=== PATIENT | male | born 1990 | race Asian ===

== ENCOUNTER 2022-09-05 11:35 | Emergency (ER) | payer OTHER, SELFPAY ==
[2022-09-05] VITALS (11 sets, daily range): BP systolic 117–158; BP diastolic 54–95; PULSE 80–124; RESP 16–31; TEMP 36.5; O2SAT 97–100
--- NOTE | 2022-09-05 11:36 | ECG_ITS ---
Measurements Intervals [place] Rate: 112 P: 50 [place]: 131 QRS: 43 QRSD: 93 T: 57 QT: 344 QTc: 470 Interpretive Statements SINUS TACHYCARDIA ABNORMAL RHYTHM ECG NO PREVIOUS ECG AVAILABLE FOR COMPARISON Electronically Signed On 09-05-2022 13:58:50 CDT by Adam Ocampo M.D.
[2022-09-05 12:10] LABS: Basophils Percent Auto 0.3 % (0.2-1.2); Eosinophils Percent Auto 0.4 % (0-4.4); Hematocrit 43.8 % (42.0-52.0); Hemoglobin 14.4 g/dL (14.0-18.0); Immature Granulocyte Absolute 0.06 K/mm3 (0.00-0.031); Immature Granulocyte Percent A 0.6 % (0-0.5); Lymphocytes Absolute Auto 1.48 K/mm3 (0.9-3.2); Lymphocytes Percent Auto 15.7 % (18.3-44.2); Mean Corpuscular HGB Conc 32.9 g/dl (32-36); Mean Corpuscular Hemoglobin 28.8 pg (26-34); Mean Corpuscular Volume 87.6 fl (80-100); Mean Platelet Volume 11.8 fl (7.4-10.4); Monocytes Absolute Auto 0.5 K/mm3 (0.1-0.6); Monocytes Percent Auto 4.8 % (2.6-8.5); Neutrophils Absolute Auto 7.4 K/mm3 (1.3-6.7); Neutrophils Percent Auto 78.2 % (45.5-73.1); Platelet Count Result 172 k/mm3 (150-375); Red Cell Distribution Width 13.9 % (11.5-14.5); White Blood Count 9.4 K/mm3 (4.5-10.0)
[2022-09-05 12:19] LABS: Alanine Aminotransferase 107 U/L (6-50); Albumin Level 4.8 g/dL (3.5-5.1); Alkaline Phosphatase 92 U/L (38-126); Anion Gap 12 mmol/L (8-16); Aspartate Amino Transferase 91 U/L (17-59); Bilirubin,Total 0.5 mg/dL (0.2-1.3); Blood Urea Nitrogen 9 mg/dL (9-20); Carbon Dioxide 24 mmol/L (22-30); Chloride 103 mmol/L (98-107); Estimated CRCL calculation 152 ml/min; Estimated Glomerular Filt Rate > 60; Glucose 159 mg/dL (65-110); Lipase 96 U/L (23-300); Potassium 4.3 mmol/L (3.4-5.0); Sodium 139 mmol/L (137-145)
[2022-09-05 12:21] LABS: Partial Thromboplastin Time 25.7 SECONDS (22.3-36.8); Prothrombin Time 12.8 Seconds (11.1-14.7)
[2022-09-05 12:31] LABS: Troponin I < 0.012 ng/mL (0.000-0.034)
--- NOTE | 2022-09-05 14:18 | ED.ARRPALP ---
HPI - Arrhythmia/Palpitations General Chief Complaint: Arrhythmia/Palpitations Stated Complaint: episode of heart racing (resolved) Time Seen by Provider: 09/05/22 13:52 Source: patient Mode of arrival: ambulatory Limitations: no limitations History of Present Illness HPI narrative: This is a 32-year-old male that presents to the emergency department after an episode of heart racing at work today. Reports he was walking around at work and started to feel like his heart was racing. He has had continued. It is now resolved. There were no associated symptoms. Denies chest pain or shortness of breath. Review of Systems Review of Systems: CONSTITUTIONAL: Denies fever CARDIOVASCULAR: Reports heart racing. Denies chest pain, or edema. RESPIRATORY: Denies dyspnea. All systems reviewed & are unremarkable except as noted in HPI and below PMFSH Past Medical History Medical History (Updated 09/05/22 @ 16:18 by Lesley Tsang PA-C) History of seizure disorder Social History Social History (Updated 09/05/22 @ 14:20 by Lesley Tsang PA-C) Smoking status: Current every day smoker Substance use: never Exam Narrative: GENERAL: Well-appearing, well-nourished, and in no acute distress. HEAD: Normocephalic, atraumatic. EYES: EOMI. CHEST: Clear to auscultation. No respiratory distress. No wheezes rales or rhonchi HEART: Regular rate and rhythm. No murmur heard. Normal peripheral pulses. EXTREMITIES: Normal range of motion. No edema. SKIN: Warm, dry, no rash. NEURO: No focal deficits. Alert and oriented x3. PSYCH: Normal mood and affect Course Vital Signs Vital signs: Vital Signs Temperature 97.7 F 09/05/22 11:40 Pulse Rate 124 H 09/05/22 11:40 Respiratory Rate 18 09/05/22 11:40 Blood Pressure 158/95 H 09/05/22 11:40 Pulse Oximetry 100 09/05/22 11:40 Oxygen Delivery Room Air 09/05/22 11:40 Temperature 97.7 F 09/05/22 11:40 Pulse Rate 91 09/05/22 15:35 Respiratory Rate 25 H 09/05/22 15:35 Blood Pressure 128/83 09/05/22 15:35 Pulse Oximetry 100 09/05/22 15:35 Oxygen Delivery Room Air 09/05/22 11:40 MDM - Arrhythmia/Palpitations MDM Narrative Medical decision making narrative: Patient presents to the ER after an episode of feeling like his heart was racing. This had resolved upon arrival. Sinus tachycardic noted upon arrival. This resolved with IV fluid administration. CBC without concerning findings. Metabolic panel with mid transaminitis. Also mild hyperglycemia. Hemoglobin A1C was obtained which was not elevated. Patient has had no further episodes while in the ED. Has remained in sinus rhythm. Instructed to have close follow up with PCP. He was given warnings to return to the ER Lab Data Attestation: I reviewed the patient's lab results. Result diagrams: 09/05/22 11:59 09/05/22 11:59 Labs: Lab Results 09/05/22 09/05/22 09/05/22 Range/Units 11:59 11:59 11:59 WBC 9.4 (4.5-10.0) K/mm3 RBC 5.00 (4.6-6.20) M/mm3 Hgb 14.4 (14.0-18.0) g/dL Hct 43.8 (42.0-52.0) % MCV 87.6 (80-100) fl MCH 28.8 (26-34) pg MCHC 32.9 (32-36) g/dl RDW 13.9 (11.5-14.5) % Plt Count 172 (150-375) k/mm3 MPV 11.8 H (7.4-10.4) fl Immature Gran % (Auto) 0.6 H (0-0.5) % Neut % (Auto) 78.2 H (45.5-73.1) % Lymph % (Auto) 15.7 L (18.3-44.2) % Holt % (Auto) 4.8 (2.6-8.5) % Eos % (Auto) 0.4 (0-4.4) % Baso % (Auto) 0.3 (0.2-1.2) % Lymph # (Auto) 1.48 (0.9-3.2) K/mm3 Holt # (Auto) 0.5 (0.1-0.6) K/mm3 Eos # (Auto) 0.0 (0-0.3) K/mm3 Baso # (Auto) 0.0 (0.0-0.1) K/mm3 Abs Immat Gran (auto) 0.06 H (0.00-0.031) K/mm3 Absolute Neuts (auto) 7.4 H (1.3-6.7) K/mm3 Absolute Nucleated RBC 0.0 (0.0-0.012) K/mm3 Nucleated RBC % 0.0 (0.0-0.2) % PT 12.8 (11.1-14.7) Seconds INR 1.0 APTT 25.7 (22.3-36.8) SECONDS Sodium 139 (137-145) mmol/L Potassium
[2022-09-05] MEDS: SODIUM CHLORIDE 0.9% IV 1,000 ML 999 ML IV CONT (14:19)
[2022-09-05 15:02] LABS: Hemoglobin A1C 5.5 % (<5.7)
== END 2022-09-05 16:30 | disposition home or self-care (01) ==
PROVIDERS: Emergency Medicine; Physician Assistant; Emergency Provider Emergency Medicine; PCP Hospitalist
DX: R00.0 Tachycardia, unspecified (principal); G40.909 Epilepsy, unspecified, not intractable, without status epilepticus; F17.200 Nicotine dependence, unspecified, uncomplicated
CPT/HCPCS: 36415; 80053; 83036; 83690; 84484; 85025; 85610; 85730; 93005; 96360; 99284; J7030

== ENCOUNTER 2023-03-24 11:04 | Emergency (ER) | payer BC, SELFPAY ==
[2023-03-24 11:03] VITALS: BP 127/80; PULSE 92; RESP 18; TEMP 36.6; O2SAT 99
--- NOTE | 2023-03-24 11:12 | ECG_ITS ---
Measurements Intervals [place] Rate: 79 P: 31 [place]: 134 QRS: 36 QRSD: 90 T: 61 QT: 316 QTc: 364 Interpretive Statements SINUS RHYTHM NONSPECIFIC T-WAVE ABNORMALITY- HIGH LATERAL LEADS BASELINE WANDER- AVL, AVF BORDERLINE ECG COMPARED TO ECG 09/05/2022 11:55:14 SINUS RHYTHM NOW PRESENT T-WAVE ABNORMALITY NOW PRESENT Electronically Signed On 03-24-2023 12:27:52 CDT by Maury Lepe D.O.
--- NOTE | 2023-03-24 11:26 | ED.ARRPALP ---
HPI - Arrhythmia/Palpitations General Chief Complaint: Arrhythmia/Palpitations Stated Complaint: heart palp Time Seen by Provider: 03/24/23 11:06 History of Present Illness HPI narrative: Patient is a 33-year-old male here for evaluation of palpitations. Patient states he has been experiencing palpitations on and off for about a year, has been seen in the ED and by his primary care doctor without clear etiology. He has been referred to a software specialist and has an appointment next week. He states the palpitations come at random and lasts minutes at a time before resolving without intervention. He denies any lightheadedness, syncope, chest pain, shortness of breath. He has not yet been set up with a Holter monitor. He did start taking weight loss medicine about 2 weeks ago that does contain caffeine. Review of Systems Review of Systems: Gen.: Denies fevers or chills Eyes: Denies eye pain or visual change ENT: Denies congestion Respiratory: Denies shortness of breath or cough CV: Reports palpitations GI: Denies abdominal pain nausea, emesis or diarrhea denies burning, urgency, frequency or hematuria Musculoskeletal: Denies back pain or muscle pain Neuro: Denies numbness, tingling, weakness or focal weakness Skin: Denies rash Except as documented, all other systems reviewed and negative PMFSH Past Medical History Medical History History of seizure disorder Social History Social History (Updated 09/05/22 @ 14:20 by Lesley Tsang PA-C) Smoking status: Current every day smoker Substance use: never Exam Narrative: APPEARANCE: Well appearing, no pain in distress, well-nourished. Head: Normocephalic and atraumatic. EYES: PERRLA/EOMI, conjunctivae clear NOSE: No nasal drainage EARS: External ear normal in appearance THROAT: Oropharynx is clear. Mucous membranes are moist. NECK: Supple. No adenopathy, no masses. RESPIRATORY: Airway patent, respirations nonlabored. Clear to auscultation bilaterally, no rales, rhonchi, wheezing. CARDIOVASCULAR: Regular rate and rhythm without murmurs, rubs, or gallops. ABDOMINAL: Normoactive bowel sounds. Soft, nontender, nondistended. No rebound tenderness or guarding. MUSCULOSKELETAL: Extremities are warm and well-perfused. Moves all extremities well. No edema. NEURO: Normal speech. No focal neurologic deficits. SKIN: Skin is warm and dry. No rashes. PSYCHIATRIC: Normal affect/mood.. Course Vital Signs Vital signs: Vital Signs Temperature 97.8 F 03/24/23 11:03 Pulse Rate 92 03/24/23 11:03 Respiratory Rate 18 03/24/23 11:03 Blood Pressure 127/80 03/24/23 11:03 Pulse Oximetry 99 03/24/23 11:03 Oxygen Delivery Room Air 03/24/23 11:03 Temperature 97.8 F 03/24/23 11:03 Pulse Rate 92 03/24/23 11:03 Respiratory Rate 18 03/24/23 11:03 Blood Pressure 127/80 03/24/23 11:03 Pulse Oximetry 99 03/24/23 11:03 Oxygen Delivery Room Air 03/24/23 11:03 MDM - Arrhythmia/Palpitations MDM Narrative Medical decision making narrative: 23-year-old male here for evaluation of palpitations over the past several weeks. Not currently present, vital signs are normal, EKG is in sinus rhythm, unchanged from previous ECG. Basic labs and electrolytes are unremarkable. Troponin is negative. He has no other symptoms, no chest pain, shortness of breath, leg swelling or other concerning findings. He is PERC negative. Patient recently started some [id number] caffeine-based weight loss medicines which may be contributing, advised him to stop these in the interim. Agreeable with plan for outpatient management and follow-up. Lab Data 03/24/23 11:33 03/24/23 11:33 Labs: Lab Results 03/24/23 Range/Units 11:33 WBC 9.9 (4.5-10.0) K/mm3 RBC 4.66 (4.6-6.20) M/mm3 Hgb 13.8 L (14.0-18.0) g/dL Hct 42.2 (42.0-52.0) % MCV 90.6 (80-100) fl MCH
[2023-03-24 11:43] LABS: Basophils Percent Auto 0.4 % (0.2-1.2); Eosinophils Absolute Auto 0.1 K/mm3 (0-0.3); Eosinophils Percent Auto 1.1 % (0-4.4); Hematocrit 42.2 % (42.0-52.0); Hemoglobin 13.8 g/dL (14.0-18.0); Immature Granulocyte Absolute 0.04 K/mm3 (0.00-0.031); Immature Granulocyte Percent A 0.4 % (0-0.5); Lymphocytes Absolute Auto 1.56 K/mm3 (0.9-3.2); Lymphocytes Percent Auto 15.8 % (18.3-44.2); Mean Corpuscular HGB Conc 32.7 g/dl (32-36); Mean Corpuscular Hemoglobin 29.6 pg (26-34); Mean Corpuscular Volume 90.6 fl (80-100); Mean Platelet Volume 11.7 fl (7.4-10.4); Monocytes Absolute Auto 0.5 K/mm3 (0.1-0.6); Monocytes Percent Auto 5.5 % (2.6-8.5); Neutrophils Absolute Auto 7.6 K/mm3 (1.3-6.7); Neutrophils Percent Auto 76.8 % (45.5-73.1); Platelet Count Result 163 k/mm3 (150-375); Red Blood Count 4.66 M/mm3 (4.6-6.20); Red Cell Distribution Width 13.5 % (11.5-14.5); White Blood Count 9.9 K/mm3 (4.5-10.0)
[2023-03-24 11:52] LABS: Alanine Aminotransferase 56 U/L (6-50); Albumin Level 4.7 g/dL (3.5-5.1); Alkaline Phosphatase 83 U/L (38-126); Anion Gap 7 mmol/L (8-16); Aspartate Amino Transferase 50 U/L (17-59); Bilirubin,Total 0.9 mg/dL (0.2-1.3); Blood Urea Nitrogen 10 mg/dL (9-20); Calcium 9.1 mg/dL (8.4-10.2); Carbon Dioxide 27 mmol/L (22-30); Chloride 102 mmol/L (98-107); Estimated Glomerular Filt Rate > 60; Glucose 101 mg/dL (65-110); Magnesium 1.9 mg/dL (1.6-2.3); Potassium 4.3 mmol/L (3.4-5.0); Sodium 136 mmol/L (137-145)
[2023-03-24 12:10] LABS: Troponin I < 0.012 ng/mL (0.000-0.034)
== END 2023-03-24 13:11 | disposition home or self-care (01) ==
PROVIDERS: Emergency Provider Physician Assistant; PCP Hospitalist
DX: R00.2 Palpitations (principal); G40.909 Epilepsy, unspecified, not intractable, without status epilepticus; F17.210 Nicotine dependence, cigarettes, uncomplicated; R94.31 Abnormal electrocardiogram [ECG] [EKG]
CPT/HCPCS: 36415; 80053; 83735; 84443; 84484; 85025; 93005; 99284